=== PATIENT | female | born 1985 | race Caucasian/White ===

== ENCOUNTER 2018-08-01 09:45 | Outpatient (RCR) | payer OTHER, SELFPAY ==
--- NOTE | 2018-05-23 14:00 | PT.OPPOC ---
Current Diagnoses Dyspareunia not due to a substance or known physiological condition (05/23/18) Sacroiliitis, not elsewhere classified (05/23/18) Stress incontinence (female) (male) (05/23/18) Incomplete uterovaginal prolapse (05/23/18) Provider Visit Care Team Role Provider Type Neil Jaimes MD Attending Provider Non-Staff Primary Care Provider Specialty: CUSTOMER ASSISTANCE REPRESENTATIVE Address: [address] [place] [address], [place], [address] Email: Plan Of Care PT-OP-T Assessment and Plan Start: 05/24/18 08:45 Freq: Status: Active Protocol: Document 05/23/18 13:45 AMB (Rec: 05/24/18 09:27 AMB [email or web address]) Physical Therapy Assessment Rehab Potential Rehabilitation Potential Good Evaluation Complexity Number of Personal Factors/Comorbidities 1-2 Number of Body Systems Impaired 4 or More Clinical Presentation at Evaluation Evolving Impairments Impairments Integument Pain Posture Soft Tissue Mobility Strength Goals Four Impairment Painful intercourse [facility] Goal (LTG) The patient will report 2/10 pain or less after intercourse LTG Duration 12 weeks Three Impairment SI pain Short Term Goal (STG) The patient will walk at work for 1 hour without reporting SI pain. STG Duration 6 weeks Two Impairment Scar tissue mobility Short Term Goal (STG) The patient will be independent with perineal massage. STG Duration 6 weeks. One Impairment Pelvic floor strength Short Term Goal (STG) The patient will improve her strength to 3/5 tested in supine. STG Duration 6 weeks Wallpaperer Goal (LTG) The patient will be able to contract her pelvic floor muscles in standing to prevent a leak while moving from sit to stand. LTG Duration 12 weeks Assessment Summary Assessment The patient attends physical therapy with poor pelvic floor strength, extensive scar tissue at the perineum, stress incontinence, dyspareunia, and SI pain that have been present for at least 3 years if not longer. She will need pelvic floor physical therapy to treat the above conditions, working on strengthening, releasing scar tissue, and improving posture that should decrease her pain and improve her continence. Physical Therapy Plan Frequency and Duration Frequency of Treatment 1x/Week Duration of Treatment 12 weeks Plan of Care Start Date 05/23/18 Plan of Care End Date 08/15/18 Therapeutic Interventions Therapeutic Interventions Home Exercise Program Manual Therapy Neuromuscular Re-education Self-Care/Home Management Therapeutic Activities Therapeutic Exercises Modalities Biofeedback Electric Stimulation Next Visit Focus/Plan Next Note Type Treatment Note Plan of Care Dates Plan of Care Start Date 05/23/18 Plan of Care End Date 08/15/18 Please Sign and Return: I have reviewed this Plan of Care and certify that the skilled therapy services above are required to meet the patient?s needs. Physician Signature Date Printed Name and Credentials Clinical Instructor Signature Printed Name and Credentials
--- NOTE | 2018-05-23 14:00 | PT.OIE ---
Current Diagnoses Dyspareunia not due to a substance or known physiological condition (05/23/18) Sacroiliitis, not elsewhere classified (05/23/18) Stress incontinence (female) (male) (05/23/18) Incomplete uterovaginal prolapse (05/23/18) Provider Visit Care Team Role Provider Type Neil Jaimes MD Attending Provider Non-Staff Primary Care Provider Specialty: OPTICAL INSTRUMENT ASSEMBLY SUPERVISOR Address: [address] [place] [address], [place], [address] Email: Physical Therapy Initial Evaluation PT-OP-A Visit Information Start: 05/24/18 08:45 Freq: Status: Active Protocol: Document 05/23/18 13:45 AMB (Rec: 05/24/18 09:14 AMB [email or web address]) Out-Patient Physical Therapy Visit Information Visit Information Visit Type Initial Evaluation Visit Start Time 13:45 Visit Stop Time 14:30 Total Visit Minutes 45 Visit Number 1 Evaluation Information Evaluation Date 05/23/18 PT-OP-B Current Condition Start: 05/24/18 08:45 Freq: Status: Active Protocol: Document 05/23/18 13:45 AMB (Rec: 05/24/18 09:14 AMB [email or web address]) Current Condition History of Current Condition Onset Date 2014 Current Complaints stress incontinence, pelvic pain History of Current Condition The patient has delivered 3 times, all vaginally with an episiotomy with the first and tearing with the second two. She reports a 3rd degree tear with her second child who was 11#. She reports constant small leaks throughout the day since her 2nd . She also reports right sided SI pain that started with her 3rd , and has continued especially with walking. She also reports baseline pain of 2/10 (a feeling of pressure) that increases with intercourse (6/10), the pain does linger on for a few hours . Prior Treatments and Tests CT showed R sacroilitis, pt reports no previous treatment Treatment Goals Patient/Caregiver Goals Reduce pain, improve continence. Prior Functional Status Baseline Function- ADL's Independent Baseline Function- Mobility Independent Current Functional Impairments (Reported) Functional Limitations- ADL's Difficulty lifting, carrying due to small urinary leaks Functional Limitations- Mobility/Gait R SI pain with walking Personal Factors Other Personal Factors That May Effect High copay ($50). 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 PT-OP-C Subjective Start: 05/24/18 08:45 Freq: Status: Active Protocol: Document 05/23/18 13:45 AMB (Rec: 05/24/18 09:14 AMB [email or web address]) Patient Questionnaires Pelvic Pain and Urgency/Frequency Patient Symptom Scale Pelvic Pain Score 15 PT-OP-I Pelvic Floor Start: 05/24/18 08:45 Freq: Status: Active Protocol: Document 05/23/18 13:45 AMB (Rec: 05/24/18 09:14 AMB [email or web address]) Pelvic Floor Assessment Urine Pelvic Floor Surgery No Urinary Symptoms Prolapse Falling Out Feeling/Heavy Pain Leakage Size Small Leakage Cause Cough Exercise Lifting Sneeze Leaks Per Day constant Voiding Frequency every 3-4 hours Nocturia 0 Urine Pad Type Panty Liner Bowel Other Bowel Symptoms Feels the need to strain despite reported 1x/day bowel movement without constipation Bowel Movement Frequency 1x/day Pelvic Clock Pelvic Clock 3-6 Tenderness Tightness Pelvic Clock 6-9 Tenderness Tightness Prolapse Uterine Prolapse Grade 2 Prolapse Comments pt with difficulty bearing down Contraction Ability Voluntary Contraction Absent Voluntary Relaxation Weak Manual Muscle Testing Left 0 Manual Muscle Testing Right 0 Manual Muscle Testing Anterior 0 Manual Muscle Testing Posterior 1 Muscle Endurance (Seconds) 1 Comments Pelvic Floor Comments Visible scar with pain with palpation at the perineum, discomfort with palpation at levator ani and obterator internus bilaterally, but worst pain is at perineum. PT-OP-J Posture/Palpation/Skin Start: 05/24/18 08:45 Freq: Status: Active Protocol: Document 05/23/18 13:45 AMB (Rec: 05/24/18 09:14 AMB [email or web address]) Posture Evaluation Comments Posture Comments Pt tends to stand with anterior pelvic tilt Palpation Assessment Location One Palpation Location Low back/pelvis Palpation Details Tenderness at sacrum (right) with deep palpation PT-OP-T Assessment and Plan Start: 05/24/18 08:45 Freq: Status: Active Protocol: Document 05/23/18 13:45 AMB (Rec: 05/24/18 09:27 AMB [email or web address]) Physical Therapy Assessment Rehab Potential Rehabilitation Potential Good Evaluation Complexity Number of Personal Factors/Comorbidities 1-2 Number of Body Systems Impaired 4 or More Clinical Presentation at Evaluation Evolving Impairments Impairments Integument Pain Posture Soft Tissue Mobility Strength Goals Four Impairment Painful intercourse Sash Clamp Operator Goal (LTG) The patient will report 2/10 pain or less after intercourse LTG Duration 12 weeks Three Impairment SI pain Short Term Goal (STG) The patient will walk at work for 1 hour without reporting SI pain. STG Duration 6 weeks Two Impairment Scar tissue mobility Short Term Goal (STG) The patient will be independent with perineal massage. STG Duration 6 weeks. One Impairment Pelvic floor strength Short Term Goal (STG) The patient will improve her strength to 3/5 tested in supine. STG Duration 6 weeks Sash Clamp Operator Goal (LTG) The patient will be able to contract her pelvic floor muscles in standing to prevent a leak while moving from sit to stand. LTG Duration 12 weeks Assessment Summary Assessment The patient attends physical therapy with poor pelvic floor strength, extensive scar tissue at the perineum, stress incontinence, dyspareunia, and SI pain that have been present for at least 3 years if not longer. She will need pelvic floor physical therapy to treat the above conditions, working on strengthening, releasing scar tissue, and improving posture that should decrease her pain and improve her continence. Physical Therapy Plan Frequency and Duration Frequency of Treatment 1x/Week Duration of Treatment 12 weeks Plan of Care Start Date 05/23/18 Plan of Care End Date 08/15/18 Therapeutic Interventions Therapeutic Interventions Home Exercise Program Manual Therapy Neuromuscular Re-education Self-Care/Home Management Therapeutic Activities Therapeutic Exercises Modalities Biofeedback Electric Stimulation Next Visit Focus/Plan Next Note Type Treatment Note
--- NOTE | 2018-06-22 11:10 | PT.OTN ---
Current Diagnoses Stress incontinence (female) (male) (06/22/18) Incomplete uterovaginal prolapse (06/22/18) Physical Therapy Treatment Note PT-OP-A Visit Information Start: 05/24/18 08:45 Freq: Status: Active Protocol: Document 06/22/18 09:00 AMB (Rec: 06/24/18 11:09 AMB [email or web address]) Out-Patient Physical Therapy Visit Information Visit Information Visit Type Treatment Note Visit Start Time 09:00 Visit Stop Time 09:45 Total Visit Minutes 45 Visit Number 1 PT-OP-B Current Condition Start: 05/24/18 08:45 Freq: Status: Active Protocol: Document 05/23/18 13:45 AMB (Rec: 05/24/18 09:14 AMB [email or web address]) Current Condition History of Current Condition Onset Date 2014 Current Complaints stress incontinence, pelvic pain History of Current Condition The patient has delivered 3 times, all vaginally with an episiotomy with the first and tearing with the second two. She reports a 3rd degree tear with her second child who was 11#. She reports constant small leaks throughout the day since her 2nd . She also reports right sided SI pain that started with her 3rd , and has continued especially with walking. She also reports baseline pain of 2/10 (a feeling of pressure) that increases with intercourse (6/10), the pain does linger on for a few hours . Prior Treatments and Tests CT showed R sacroilitis, pt reports no previous treatment Treatment Goals Patient/Caregiver Goals Reduce pain, improve continence. Prior Functional Status Baseline Function- ADL's Independent Baseline Function- Mobility Independent Current Functional Impairments (Reported) Functional Limitations- ADL's Difficulty lifting, carrying due to small urinary leaks Functional Limitations- Mobility/Gait R SI pain with walking Personal Factors Other Personal Factors That May Effect High copay ($50). 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 PT-OP-C Subjective Start: 05/24/18 08:45 Freq: Status: Active Protocol: Document 06/22/18 09:00 AMB (Rec: 06/24/18 11:09 AMB [email or web address]) OP-PT Subjective Patient Comments Patient Comments Pt reports she has been trying to do the exercises, and they are going ok. She has not noticed much difference in leaking though. PT-OP-I Pelvic Floor Start: 05/24/18 08:45 Freq: Status: Active Protocol: Document 05/23/18 13:45 AMB (Rec: 05/24/18 09:14 AMB [email or web address]) Pelvic Floor Assessment Urine Pelvic Floor Surgery No Urinary Symptoms Prolapse Falling Out Feeling/Heavy Pain Leakage Size Small Leakage Cause Cough Exercise Lifting Sneeze Leaks Per Day constant Voiding Frequency every 3-4 hours Nocturia 0 Urine Pad Type Panty Liner Bowel Other Bowel Symptoms Feels the need to strain despite reported 1x/day bowel movement without constipation Bowel Movement Frequency 1x/day Pelvic Clock Pelvic Clock 3-6 Tenderness Tightness Pelvic Clock 6-9 Tenderness Tightness Prolapse Uterine Prolapse Grade 2 Prolapse Comments pt with difficulty bearing down Contraction Ability Voluntary Contraction Absent Voluntary Relaxation Weak Manual Muscle Testing Left 0 Manual Muscle Testing Right 0 Manual Muscle Testing Anterior 0 Manual Muscle Testing Posterior 1 Muscle Endurance (Seconds) 1 Comments Pelvic Floor Comments Visible scar with pain with palpation at the perineum, discomfort with palpation at levator ani and obterator internus bilaterally, but worst pain is at perineum. PT-OP-J Posture/Palpation/Skin Start: 05/24/18 08:45 Freq: Status: Active Protocol: Document 05/23/18 13:45 AMB (Rec: 05/24/18 09:14 AMB [email or web address]) Posture Evaluation Comments Posture Comments Pt tends to stand with anterior pelvic tilt Palpation Assessment Location One Palpation Location Low back/pelvis Palpation Details Tenderness at sacrum (right) with deep palpation PT-OP-Q Treatments Start: 05/24/18 08:45 Freq: Status: Active Protocol: Document 06/22/18 09:00 AMB (Rec: 06/24/18 11:09 AMB [email or web address]) Manual Therapy Treatment Soft Tissue Mobilization 1 Body Location perineum Mobilization Type Cross-Friction Sustained Pressure Intensity/Depth Moderate Body Position Hooklying Comments stretching scar tissue Neuro Re-Education Treatment Other Activities 3 Details hip add isometric Comments with pelvic floor stabilization 2 Details long holds Comments with sEMG 1 Details quick flicks Comments with sEMG PT-OP-T Assessment and Plan Start: 05/24/18 08:45 Freq: Status: Active Protocol: Document 06/22/18 09:00 AMB (Rec: 06/24/18 11:09 AMB [email or web address]) Physical Therapy Assessment Assessment Summary Assessment Pt with significant weakness in pelvic floor today, also has pain with even light palpation. Will need to continue progressing gently. Physical Therapy Plan Next Visit Focus/Plan Next Note Type Treatment Note Next Visit Plan Progress biofeedback strengthening, stay in supine for now. Manual therapy, could dispense dilator.
--- NOTE | 2018-07-20 16:42 | PT.OTN ---
Current Diagnoses Stress incontinence (female) (male) (07/20/18) Incomplete uterovaginal prolapse (07/20/18) Physical Therapy Treatment Note PT-OP-A Visit Information Start: 05/24/18 08:45 Freq: Status: Active Protocol: Document 07/20/18 09:00 AMB (Rec: 07/20/18 16:42 AMB [email or web address]) Out-Patient Physical Therapy Visit Information Visit Information Visit Type Treatment Note Visit Start Time 09:00 Visit Stop Time 09:45 Total Visit Minutes 45 Visit Number 3 Evaluation Information Evaluation Date 05/23/18 PT-OP-B Current Condition Start: 05/24/18 08:45 Freq: Status: Active Protocol: Document 05/23/18 13:45 AMB (Rec: 05/24/18 09:14 AMB [email or web address]) Current Condition History of Current Condition Onset Date 2014 Current Complaints stress incontinence, pelvic pain History of Current Condition The patient has delivered 3 times, all vaginally with an episiotomy with the first and tearing with the second two. She reports a 3rd degree tear with her second child who was 11#. She reports constant small leaks throughout the day since her 2nd . She also reports right sided SI pain that started with her 3rd , and has continued especially with walking. She also reports baseline pain of 2/10 (a feeling of pressure) that increases with intercourse (6/10), the pain does linger on for a few hours . Prior Treatments and Tests CT showed R sacroilitis, pt reports no previous treatment Treatment Goals Patient/Caregiver Goals Reduce pain, improve continence. Prior Functional Status Baseline Function- ADL's Independent Baseline Function- Mobility Independent Current Functional Impairments (Reported) Functional Limitations- ADL's Difficulty lifting, carrying due to small urinary leaks Functional Limitations- Mobility/Gait R SI pain with walking Personal Factors Other Personal Factors That May Effect High copay ($50). 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 PT-OP-C Subjective Start: 05/24/18 08:45 Freq: Status: Active Protocol: Document 07/20/18 09:00 AMB (Rec: 07/20/18 16:42 AMB [email or web address]) OP-PT Subjective Patient Comments Patient Comments Pt is noticing more leaking. Continued pain with intercourse. PT-OP-I Pelvic Floor Start: 05/24/18 08:45 Freq: Status: Active Protocol: Document 05/23/18 13:45 AMB (Rec: 05/24/18 09:14 AMB [email or web address]) Pelvic Floor Assessment Urine Pelvic Floor Surgery No Urinary Symptoms Prolapse Falling Out Feeling/Heavy Pain Leakage Size Small Leakage Cause Cough Exercise Lifting Sneeze Leaks Per Day constant Voiding Frequency every 3-4 hours Nocturia 0 Urine Pad Type Panty Liner Bowel Other Bowel Symptoms Feels the need to strain despite reported 1x/day bowel movement without constipation Bowel Movement Frequency 1x/day Pelvic Clock Pelvic Clock 3-6 Tenderness Tightness Pelvic Clock 6-9 Tenderness Tightness Prolapse Uterine Prolapse Grade 2 Prolapse Comments pt with difficulty bearing down Contraction Ability Voluntary Contraction Absent Voluntary Relaxation Weak Manual Muscle Testing Left 0 Manual Muscle Testing Right 0 Manual Muscle Testing Anterior 0 Manual Muscle Testing Posterior 1 Muscle Endurance (Seconds) 1 Comments Pelvic Floor Comments Visible scar with pain with palpation at the perineum, discomfort with palpation at levator ani and obterator internus bilaterally, but worst pain is at perineum. PT-OP-J Posture/Palpation/Skin Start: 05/24/18 08:45 Freq: Status: Active Protocol: Document 05/23/18 13:45 AMB (Rec: 05/24/18 09:14 AMB [email or web address]) Posture Evaluation Comments Posture Comments Pt tends to stand with anterior pelvic tilt Palpation Assessment Location One Palpation Location Low back/pelvis Palpation Details Tenderness at sacrum (right) with deep palpation PT-OP-Q Treatments Start: 05/24/18 08:45 Freq: Status: Active Protocol: Document 07/20/18 09:00 AMB (Rec: 07/20/18 16:42 AMB [email or web address]) Manual Therapy Treatment Soft Tissue Mobilization 1 Body Location perineum Mobilization Type Cross-Friction Sustained Pressure Intensity/Depth Moderate Body Position Hooklying Comments stretching scar tissue Neuro Re-Education Treatment Other Activities 2 Details long holds Comments with sEMG with legs propped on two bolsters 1 Details quick flicks Comments with sEMG wiht legs propped on two bolsters PT-OP-T Assessment and Plan Start: 05/24/18 08:45 Freq: Status: Active Protocol: Document 07/20/18 09:00 AMB (Rec: 07/20/18 16:42 AMB [email or web address]) Physical Therapy Assessment Assessment Summary Assessment Continue strengthening and stretching gently. Pt encouraged to actually decrease number of reps to try to help with increased leaking. Physical Therapy Plan Next Visit Focus/Plan Next Note Type Treatment Note Next Visit Plan Consider dilator. Role of back pain with perineal pain.
--- NOTE | 2018-08-01 16:25 | PT.OTN ---
Current Diagnoses Stress incontinence (female) (male) (08/01/18) Incomplete uterovaginal prolapse (08/01/18) Physical Therapy Treatment Note PT-OP-A Visit Information Start: 05/24/18 08:45 Freq: Status: Active Protocol: Document 08/01/18 10:30 AMB (Rec: 08/01/18 16:03 AMB [email or web address]) Out-Patient Physical Therapy Visit Information Visit Information Visit Type Treatment Note Visit Start Time 10:30 Visit Stop Time 11:15 Total Visit Minutes 45 Visit Number 4 Evaluation Information Evaluation Date 05/23/18 PT-OP-B Current Condition Start: 05/24/18 08:45 Freq: Status: Active Protocol: Document 05/23/18 13:45 AMB (Rec: 05/24/18 09:14 AMB [email or web address]) Current Condition History of Current Condition Onset Date 2014 Current Complaints stress incontinence, pelvic pain History of Current Condition The patient has delivered 3 times, all vaginally with an episiotomy with the first and tearing with the second two. She reports a 3rd degree tear with her second child who was 11#. She reports constant small leaks throughout the day since her 2nd . She also reports right sided SI pain that started with her 3rd , and has continued especially with walking. She also reports baseline pain of 2/10 (a feeling of pressure) that increases with intercourse (6/10), the pain does linger on for a few hours . Prior Treatments and Tests CT showed R sacroilitis, pt reports no previous treatment Treatment Goals Patient/Caregiver Goals Reduce pain, improve continence. Prior Functional Status Baseline Function- ADL's Independent Baseline Function- Mobility Independent Current Functional Impairments (Reported) Functional Limitations- ADL's Difficulty lifting, carrying due to small urinary leaks Functional Limitations- Mobility/Gait R SI pain with walking Personal Factors Other Personal Factors That May Effect High copay ($50). 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 PT-OP-C Subjective Start: 05/24/18 08:45 Freq: Status: Active Protocol: Document 08/01/18 10:30 AMB (Rec: 08/01/18 16:03 AMB [email or web address]) OP-PT Subjective Patient Comments Patient Comments Pt feels like things are about the same. Has been noticing sharp SI pain with sit to stand. PT-OP-I Pelvic Floor Start: 05/24/18 08:45 Freq: Status: Active Protocol: Document 05/23/18 13:45 AMB (Rec: 05/24/18 09:14 AMB [email or web address]) Pelvic Floor Assessment Urine Pelvic Floor Surgery No Urinary Symptoms Prolapse Falling Out Feeling/Heavy Pain Leakage Size Small Leakage Cause Cough Exercise Lifting Sneeze Leaks Per Day constant Voiding Frequency every 3-4 hours Nocturia 0 Urine Pad Type Panty Liner Bowel Other Bowel Symptoms Feels the need to strain despite reported 1x/day bowel movement without constipation Bowel Movement Frequency 1x/day Pelvic Clock Pelvic Clock 3-6 Tenderness Tightness Pelvic Clock 6-9 Tenderness Tightness Prolapse Uterine Prolapse Grade 2 Prolapse Comments pt with difficulty bearing down Contraction Ability Voluntary Contraction Absent Voluntary Relaxation Weak Manual Muscle Testing Left 0 Manual Muscle Testing Right 0 Manual Muscle Testing Anterior 0 Manual Muscle Testing Posterior 1 Muscle Endurance (Seconds) 1 Comments Pelvic Floor Comments Visible scar with pain with palpation at the perineum, discomfort with palpation at levator ani and obterator internus bilaterally, but worst pain is at perineum. PT-OP-J Posture/Palpation/Skin Start: 05/24/18 08:45 Freq: Status: Active Protocol: Document 05/23/18 13:45 AMB (Rec: 05/24/18 09:14 AMB [email or web address]) Posture Evaluation Comments Posture Comments Pt tends to stand with anterior pelvic tilt Palpation Assessment Location One Palpation Location Low back/pelvis Palpation Details Tenderness at sacrum (right) with deep palpation PT-OP-Q Treatments Start: 05/24/18 08:45 Freq: Status: Active Protocol: Document 08/01/18 10:30 AMB (Rec: 08/01/18 16:03 AMB [email or web address]) Manual Therapy Treatment Soft Tissue Mobilization 2 Body Location L piriformis/ gluteals Mobilization Type Strumming Intensity/Depth Superficial Body Position Prone Joint Mobilizations 1 Joint L SI Direction PA Grade II Manual Traction Lumbar Details long axis L in supine/ then prone Taping 1 Body Location SI joint Type of Tape Kinesio Tape Comments X over [id number] PT-OP-T Assessment and Plan Start: 05/24/18 08:45 Freq: Status: Active Protocol: Document 08/01/18 09:53 AMB (Rec: 08/01/18 11:17 AMB [id number]) Physical Therapy Assessment Goals Four Impairment 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 STG Duration 6 weeks One Impairment Pelvic floor strength Short Term Goal (STG) The patient will improve her strength to 3/5 tested in supine. STG Duration 6 weeks Intermediate Goal (LTG) The patient will be able to contract her pelvic floor muscles in standing to prevent a leak while moving from sit to stand. LTG Duration 12 weeks Assessment Summary Assessment 3-4/10 SI pain after manual. SI pain did radiate into L abdomen. Pt does report tailbone fracture in high school. Progress has been fairly limited due to high copay, but pt is going to try to come to PT more in the new year with new insurance. Pt's pelvic floor strength continues to be very weak. Sacral/cocyxx malpositioning are likely impacting strength. Physical Therapy Plan Frequency and Duration Frequency of Treatment 1x/Week Duration of Treatment 12 weeks Plan of Care Start Date 08/01/18 Plan of Care End Date 10/24/17 Therapeutic Interventions Therapeutic Interventions Home Exercise Program Manual Therapy Neuromuscular Re-education Self-Care/Home Management Therapeutic Activities Therapeutic Exercises Modalities Biofeedback Electric Stimulation Next Visit Focus/Plan Next Note Type Treatment Note Next Visit Plan Assess if pt can contract pelvic floor better with SI stability
--- NOTE | 2018-08-01 16:26 | PT.OPPOC ---
Current Diagnoses Stress incontinence (female) (male) (08/01/18) Incomplete uterovaginal prolapse (08/01/18) Provider Visit Care Team Role Provider Type Neil Jaimes MD Attending Provider Non-Staff Primary Care Provider Specialty: MOLD SHIFTER Address: [address], [place], [address] Email: Plan Of Care PT-OP-T Assessment and Plan Start: 05/24/18 08:45 Freq: Status: Active Protocol: Document 08/01/18 09:53 AMB (Rec: 08/01/18 11:17 AMB [id number]) Physical Therapy Assessment Goals Four Impairment Painful intercourse Alf Goal (LTG) The patient will report 2/10 pain or less after intercourse LTG Duration 12 weeks Three Impairment SI pain Short Term Goal (STG) The patient will walk at work for 1 hour without reporting SI pain. STG Duration 6 weeks One Impairment Pelvic floor strength Short Term Goal (STG) The patient will improve her strength to 3/5 tested in supine. STG Duration 6 weeks Alf Goal (LTG) The patient will be able to contract her pelvic floor muscles in standing to prevent a leak while moving from sit to stand. LTG Duration 12 weeks Assessment Summary Assessment 3-4/10 SI pain after manual. SI pain did radiate into L abdomen. Pt does report tailbone fracture in high school. Progress has been fairly limited due to high copay, but pt is going to try to come to PT more in the new year with new insurance. Pt's pelvic floor strength continues to be very weak. Sacral/cocyxx malpositioning are likely impacting strength. Physical Therapy Plan Frequency and Duration Frequency of Treatment 1x/Week Duration of Treatment 12 weeks Plan of Care Start Date 08/01/18 Plan of Care End Date 10/24/17 Therapeutic Interventions Therapeutic Interventions Home Exercise Program Manual Therapy Neuromuscular Re-education Self-Care/Home Management Therapeutic Activities Therapeutic Exercises Modalities Biofeedback Electric Stimulation Next Visit Focus/Plan Next Note Type Treatment Note Next Visit Plan Assess if pt can contract pelvic floor better with SI stability Plan of Care Dates Plan of Care Start Date 08/01/18 Plan of Care End Date 10/24/17 Please Sign and Return: I have reviewed this Plan of Care and certify that the skilled therapy services above are required to meet the patient?s needs. Physician Signature Date Printed Name and Credentials Clinical Instructor Signature Printed Name and Credentials
--- NOTE | 2018-09-11 11:43 | PT.OPDS ---
Current Diagnoses Stress incontinence (female) (male) (08/01/18) Incomplete uterovaginal prolapse (08/01/18) Provider Visit Care Team Role Provider Type Neil Jaimes MD Attending Provider Non-Staff Primary Care Provider Specialty: HYDRAULIC TECHNICIAN Address: [address], [place], [address] Email: Visit Number Visit Number 4 Discharge Summary PT-OP-B Current Condition Start: 05/24/18 08:45 Freq: Status: Active Protocol: Document 05/23/18 13:45 AMB (Rec: 05/24/18 09:14 AMB [email or web address]) Current Condition History of Current Condition Onset Date 2014 Current Complaints stress incontinence, pelvic pain History of Current Condition The patient has delivered 3 times, all vaginally with an episiotomy with the first and tearing with the second two. She reports a 3rd degree tear with her second child who was 11#. She reports constant small leaks throughout the day since her 2nd . She also reports right sided SI pain that started with her 3rd , and has continued especially with walking. She also reports baseline pain of 2/10 (a feeling of pressure) that increases with intercourse (6/10), the pain does linger on for a few hours . Prior Treatments and Tests CT showed R sacroilitis, pt reports no previous treatment Treatment Goals Patient/Caregiver Goals Reduce pain, improve continence. Prior Functional Status Baseline Function- ADL's Independent Baseline Function- Mobility Independent Current Functional Impairments (Reported) Functional Limitations- ADL's Difficulty lifting, carrying due to small urinary leaks Functional Limitations- Mobility/Gait R SI pain with walking Personal Factors Other Personal Factors That May Effect High copay ($50). 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 PT-OP-C Subjective Start: 05/24/18 08:45 Freq: Status: Active Protocol: Document 08/01/18 10:30 AMB (Rec: 08/01/18 16:03 AMB [email or web address]) OP-PT Subjective Patient Comments Patient Comments Pt feels like things are about the same. Has been noticing sharp SI pain with sit to stand. PT-OP-I Pelvic Floor Start: 05/24/18 08:45 Freq: Status: Active Protocol: Document 05/23/18 13:45 AMB (Rec: 05/24/18 09:14 AMB [email or web address]) Pelvic Floor Assessment Urine Pelvic Floor Surgery No Urinary Symptoms Prolapse Falling Out Feeling/Heavy Pain Leakage Size Small Leakage Cause Cough Exercise Lifting Sneeze Leaks Per Day constant Voiding Frequency every 3-4 hours Nocturia 0 Urine Pad Type Panty Liner Bowel Other Bowel Symptoms Feels the need to strain despite reported 1x/day bowel movement without constipation Bowel Movement Frequency 1x/day Pelvic Clock Pelvic Clock 3-6 Tenderness Tightness Pelvic Clock 6-9 Tenderness Tightness Prolapse Uterine Prolapse Grade 2 Prolapse Comments pt with difficulty bearing down Contraction Ability Voluntary Contraction Absent Voluntary Relaxation Weak Manual Muscle Testing Left 0 Manual Muscle Testing Right 0 Manual Muscle Testing Anterior 0 Manual Muscle Testing Posterior 1 Muscle Endurance (Seconds) 1 Comments Pelvic Floor Comments Visible scar with pain with palpation at the perineum, discomfort with palpation at levator ani and obterator internus bilaterally, but worst pain is at perineum. PT-OP-J Posture/Palpation/Skin Start: 05/24/18 08:45 Freq: Status: Active Protocol: Document 05/23/18 13:45 AMB (Rec: 05/24/18 09:14 AMB [email or web address]) Posture Evaluation Comments Posture Comments Pt tends to stand with anterior pelvic tilt Palpation Assessment Location One Palpation Location Low back/pelvis Palpation Details Tenderness at sacrum (right) with deep palpation PT-OP-T Assessment and Plan Start: 05/24/18 08:45 Freq: Status: Active Protocol: Document 09/11/18 11:37 AMB (Rec: 09/11/18 11:43 AMB [email or web address]) Physical Therapy Assessment Goals Four Impairment Painful intercourse [facility] Goal (LTG) The patient will report 2/10 pain or less after intercourse LTG Duration 12 weeks Three Impairment SI pain Short Term Goal (STG) The patient will walk at work for 1 hour without reporting SI pain. STG Duration 6 weeks Two Impairment Scar tissue mobility Short Term Goal (STG) The patient will be independent with perineal massage. STG Duration 6 weeks. One Impairment Pelvic floor strength Short Term Goal (STG) The patient will improve her strength to 3/5 tested in supine. STG Duration 6 weeks [facility] Goal (LTG) The patient will be able to contract her pelvic floor muscles in standing to prevent a leak while moving from sit to stand. LTG Duration 12 weeks Assessment Summary Assessment Pt has attended 4 visits including evaluation. At this point she does not feel that she can continue (high copay, lack of progress). See progress note, pt has not met goals, continues to be a complicated patient with multiple weaknesses and pain issues. Physical Therapy Plan Discharge Physical Therapy Discharge Reasons Patient Request
== END 2018-11-07 14:59 ==
LOC: PHYS 09:45
PROVIDERS: PCP Obstetrics & Gynecology; Visit Provider Obstetrics & Gynecology
DX: N39.3 Stress incontinence (female) (male) (principal); N81.2 Incomplete uterovaginal prolapse
CPT/HCPCS: 97112; 97140; 97162